=== PATIENT | female | born 2000 | race Caucasian/White ===

== ENCOUNTER 2018-09-21 13:02 | Emergency (ER) | payer OTHER, SELFPAY ==
[2018-09-21] VITALS (7 sets, daily range): BP systolic 108–126; BP diastolic 63–110; PULSE 84–110; RESP 16–18; TEMP 36.6; O2SAT 95–98; BMI 21.9
[2018-09-21 13:57] LABS: Absolute Neutrophil Count 5.5 X10^3/uL (2.0-7.7); Basophil# 0.06 X10^3/uL; Basophil% 0.7 % (0-1); Eosinophil# 0.16 X10^3/uL; Hematocrit 41.3 % (37-47); Hemoglobin 13.9 g/dl (12.0-15.0); Lymphocyte % 19.6 % (19-41); Mean Corp Hgb Conc 33.7 g/gl (32-36); Mean Corpuscular Hgb 31.7 pg (27.0-32.0); Mean Corpuscular Volume 94.3 fL (81-99); Mean Platelet Vol. 9.2 fl (6.2-12.0); Monocyte# 0.85 X10^3/uL; Monocyte% 10.4 % (0-10); Neutrophil # 5.47 X10^3/uL (2.7-7.7); Neutrophil % 67.1 % (47-70); POSITIVE COUNT NO; POSITIVE DIFFERENTIAL NO; POSITIVE MORPHOLOGY NO; Platelet Count 359 K/mm3 (150-450); RBC Distribution Width CV 13.9 % (11.6-14.6); RBC Distribution Width SD 45.1 fl (35.1-43.9); Red Blood Count 4.38 M/mm3 (4.2-5.4); White Blood Count 8.2 K/mm3 (4.4-11.0)
[2018-09-21 14:08] LABS: Anion Gap 7 (5-15); BUN 10 mg/dL (7-18); BUN/Creat Ratio 11.7 RATIO (10-20); Calcium,Total 8.9 mg/dL (8.5-10.1); Chloride 109 mmol/L (98-107); Creatinine, Serum 0.86 mg/dL (0.55-1.02); EST Glomerular Filtration Rate 90 mL/min (>60); Est Glom Filt Rate - Afr Amer 109 mL/min (>60); Estimated Creatinine Clearance 90.11 ml/min; Glucose 53 mg/dL (74-106); Potassium 3.7 mmol/L (3.5-5.1); Sodium Level 143 mmol/L (136-145)
[2018-09-21 14:15] LABS: Pregnancy, Serum, hCG Quali. NEGATIVE Negative (0-9 Nonpreg)
[2018-09-21 14:16] LABS: Amphetamine Urine VISTA POSITIVE (<1000 ng/mL); Barbiturate Urine VISTA NEGATIVE (< 200 ng/mL); Benzodiazepine Urine VISTA NEGATIVE (< 200 ng/mL); Cocaine Urine VISTA NEGATIVE (< 300 ng/mL); Ecstacy Urine VISTA NEGATIVE (< 500 ng/mL); Methadone Urine VISTA NEGATIVE (< 300 ng/mL); PCP Urine VISTA NEGATIVE (< 25 ng/mL); THC Urine VISTA POSITIVE (< 50 ng/mL); Vista UDS pH Range 5
[2018-09-21 14:25] LABS: Alcohol, Blood (Medical)-Serum < 3.0 mg/dL
--- NOTE | 2018-09-21 14:42 | NURSING ---
CALLED CRISIS, PATIENT MEDICALLY CLEARED
--- NOTE | 2018-09-21 15:01 | NURSING ---
HEIDI, CRISIS, CALLED BACK. SHE WILL BE OVER
--- NOTE | 2018-09-21 15:02 | NURSING ---
HEIDI , CRISIS, HERE
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
--- NOTE | 2018-09-21 18:37 | ED.RN ---
PT GIVEN ONE 7.5MG BUSPIRONE FROM HER HOME SUPPLY AFTER VERIFYING IDENTIFICATION OF THE MEDICATION WITH DR. HARDY WHO HAS ASSUMED CARE AT THIS TIME.
--- NOTE | 2018-09-21 18:45 | ED.RN ---
CALLED [facility] FOR TRANSPORT TO [facility], THEY ARE IN ROUTE
== END 2018-09-21 19:10 ==
LOC: ED 13:38
PROVIDERS: Emergency Provider Emergency Medicine; Family Provider Preventive Medicine Occupational Medicine; PCP Preventive Medicine Occupational Medicine
DX: F31.9 Bipolar disorder, unspecified (principal); R45.851 Suicidal ideations; F41.9 Anxiety disorder, unspecified; Z72.0 Tobacco use
CPT/HCPCS: 36415; 80048; 80307; 80320; 84703; 85025; 99284; G0480

== ENCOUNTER 2020-10-23 23:08 | Emergency (ER) | payer OTHER, SELFPAY ==
[2018-09-21 13:03] VITALS: BMI 21.9
[2020-10-23 23:09] VITALS: BP 148/99; PULSE 102; PULSE 104; RESP 18; TEMP 36.6; O2SAT 93; O2SAT 98; BMI 21.7
[2020-10-23 23:37] LABS: Absolute Lymphocyte Count 2.01 X10^3/uL (0.83-4.51); Absolute Neutrophil Count 9.6 X10^3/uL (2.0-7.7); Basophil# 0.06 X10^3/uL; Basophil% 0.5 % (0-1); Eosinophil# 0.12 X10^3/uL; Hematocrit 42.7 % (37-47); Hemoglobin 14.5 g/dL (12.0-15.0); Lymphocyte # 2.01 X10^3/ul (4.0); Mean Corpuscular Hgb 32.4 pg (27.0-32.0); Mean Corpuscular Volume 95.3 fL (81-99); Mean Platelet Vol. 9.1 fl (6.2-12.0); Monocyte# 0.79 X10^3/uL; Monocyte% 6.3 % (0-10); NRBC Flagged by Analyzer 0 % (0-5); Neutrophil # 9.59 X10^3/uL (2.7-7.7); Platelet Count 364 K/mm3 (150-450); RBC Distribution Width CV 11.9 % (11.6-14.6); RBC Distribution Width SD 41.4 fl (35.1-43.9); Red Blood Count 4.48 M/mm3 (4.2-5.4); White Blood Count 12.6 K/mm3 (4.4-11.0)
[2020-10-23] MEDS: Ziprasidone IM 20 MG/ML VIAL IM (23:45)
[2020-10-23 23:46] LABS: Bacteria 0 SEEN /hpf (None Seen); Squamous Epithelial Cells - UA 0 SEEN /hpf (5-10)
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
[2020-10-23 23:50] LABS: Color, Urine Yellow (Yellow); Glucose, Dipstick Normal (Normal); Ketone-Dipstick 5 mg/dl (Negative); Leukocyte Esterase-Dipstick 100 /ul (Negative); Nitrite-Dipstick Negative (Negative); Occult Blood-Urine 250 /ul (Negative); Protein-Dipstick 100 mg/dl (Negative); Specific Gravity, Urine 1.025 (1.002-1.030); Urine Bilirubin Dipstick 1 mg/dL (Negative); Urine Clarity Sl. Cloudy (Clear); Urine Urobilinogen 1 mg/dl (Normal)
[2020-10-23 23:53] LABS: Vista UDS pH Range 5
[2020-10-23 23:53] LABS: Internal QC Validated? YES +Cl - CLEAR BKGD; Pregnancy, Serum, hCG Quali. NEGATIVE Negative
[2020-10-23 23:55] LABS: Anion Gap 10 (5-15); BUN 13 mg/dL (7-18); BUN/Creat Ratio 11.4 RATIO (10-20); Calcium,Total 9.6 mg/dL (8.5-10.1); Chloride 108 mmol/L (98-107); Creatinine, Serum 1.14 mg/dL (0.55-1.02); EST Glomerular Filtration Rate 63 mL/min (>60); Est Glom Filt Rate - Afr Amer 77 mL/min (>60); Estimated Creatinine Clearance 72.46 ml/min; Glucose 138 mg/dL (74-106); Sodium Level 141 mmol/L (136-145); Thyroid Stim Hormone (TSH) 2.76 uIU/mL (0.358-3.74)
[2020-10-23 23:56] LABS: Alcohol, Blood (Medical)-Serum < 3.0 mg/dL
[2020-10-23 23:59] LABS: Amphetamine Urine VISTA POSITIVE (<1000 ng/mL); Barbiturate Urine VISTA NEGATIVE (< 200 ng/mL); Benzodiazepine Urine VISTA POSITIVE (< 200 ng/mL); Cocaine Urine VISTA NEGATIVE (< 300 ng/mL); Ecstacy Urine VISTA POSITIVE (< 500 ng/mL); Hyaline Cast 25-50 SEEN /lpf (0-5); Methadone Urine VISTA NEGATIVE (< 300 ng/mL); Mucous, Urine 4+ /hpf (<or=2+); PCP Urine VISTA NEGATIVE (< 25 ng/mL); Red Blood Cells-Urine 25-50 SEEN /hpf (0-5); THC Urine VISTA POSITIVE (< 50 ng/mL); White Blood Cells 5-10 SEEN /hpf (0-5)
[2020-10-24] VITALS (7 sets, daily range): BP systolic 96–126; BP diastolic 53–93; PULSE 74–114; RESP 15–20; O2SAT 98–100
--- NOTE | 2020-10-24 00:31 | ED.RN ---
FAXED PAPERS TO CRISIS
[2020-10-24] MEDS: hydrOXYzine PAM 25 MG Capsule PO (02:28)
[2020-10-24] MEDS: lamoTRIgine 100 MG Tablet PO (02:28)
[2020-10-24] MEDS: QUEtiapine 100 MG Tablet 300 MG PO (02:28)
--- NOTE | 2020-10-24 03:11 | ED.RN ---
PT SLEEPING ALL RESTRAINTS REMOVED.SITTER REMAINS AT THE BEDSIDE.
--- NOTE | 2020-10-24 04:14 | ED.RN ---
[facility] CALLED AND SAID PATIENT IS PENDING [facility]
== END 2020-10-24 07:30 ==
LOC: ED 23:31
PROVIDERS: Emergency Provider Emergency Medicine; PCP Preventive Medicine Occupational Medicine
DX: R45.851 Suicidal ideations (principal); F15.10 Other stimulant abuse, uncomplicated; F31.9 Bipolar disorder, unspecified
CPT/HCPCS: 80048; 80307; 81001; 82077; 84443; 84703; 85025; 87426; 96372; 99285; J3486

== ENCOUNTER → 2022-02-27 | Outpatient (CLI) | payer OTHER, MEDICAID, SELFPAY ==
[2022-02-27 14:36] LABS: Lipase 122 U/L (73-393)
== END | disposition home or self-care (01) ==
LOC: LABSPEC 14:09
PROVIDERS: PCP Preventive Medicine Occupational Medicine; Referring Provider Nurse Practitioner Family; Visit Provider Nurse Practitioner Family
DX: R10.84 Generalized abdominal pain (principal)
CPT/HCPCS: 83690